=== PATIENT | male | born 1975 | race African-American/Black ===

== ENCOUNTER 2023-06-25 08:33 | Outpatient (CLI) | payer OTHER ==
[2023-06-25 08:57] LABS: Vancomycin, Trough 11.3 ug/mL
[2023-06-25 08:58] LABS: Anion Gap 14 mmol/L (10-20); BUN (Urea Nitrogen) 16 mg/dL (8.9-20.6); Calc. Creatinine Clearance 0 mL/min (70-130); Calcium 9.2 mg/dL (7.8-10.44); Carbon Dioxide 27 mmol/L (22-29); Chloride 102 mmol/L (98-107); Estimated GFR 56; Glucose 128 mg/dL (70-105); Potassium 3.6 mmol/L (3.5-5.1); Sodium 139 mmol/L (136-145)
== END 2023-06-25 08:34 | disposition home or self-care (01) ==
LOC: NAV LAB 08:33
PROVIDERS: ATTEND Family Medicine
DX: Z21 Asymptomatic human immunodeficiency virus [HIV] infection status (principal); N18.9 Chronic kidney disease, unspecified; D63.1 Anemia in chronic kidney disease; G40.909 Epilepsy, unspecified, not intractable, without status epilepticus
CPT/HCPCS: 80048; 80202